=== PATIENT | female | born 1960 | race Caucasian/White ===

== ENCOUNTER 2020-01-11 11:14 | Outpatient (CLI) | payer OTHER, SELFPAY ==
--- NOTE | ~2020-01-11 | US_ITS ---
EXAMINATION: US right upper quadrant EXAM DATE: 01/11/2020 11:58 INDICATION: Right upper quadrant pain. TECHNIQUE: Multiple grayscale and Doppler images of the abdomen right upper quadrant were obtained (b y a technologist who performed the scan) and subsequently reviewed. Comparison is made to prior exami nation from 09/05/2008. FINDINGS: The pancreatic head and body are normal in appearance. The pancreatic tail is not visualized. The l iver has normal echogenicity and contour. There are no focal liver lesions identified. There is no evidence of intrahepatic biliary duct dilation. Portal venous flow was seen in the hepatopedal, nor mal direction and has normal Doppler waveform. No right-sided hydronephrosis. Common bile duct measures 3 mm, which is normal. The gallbladder wall is normal in thickness, with ex pected amount of distention. No sonographic evidence of pericholecystic fluid. Small echogenic focu s, probably poorly calcified gallstone. Technologist performing exam reports patient did not demonst rate sonographic Johnson's sign. Please note that this sign is less reliable in patients who have rec eived pain medication. IMPRESSION: 1. Cholelithiasis. Reviewed, dictated and finalized at location B. AZZO LABORER IMPRESSION: 1. Cholelithiasis.
[2020-01-11 12:49] LABS: Basophils Percent Auto 0.4 % (0.2-1.2); Eosinophils Percent Auto 0.7 % (0-4.4); Hematocrit 44.2 % (37.0-47.0); Hemoglobin 14.4 g/dL (12.0-15.0); Immature Granulocyte Absolute 0.02 K/mm3 (0.00-0.031); Immature Granulocyte Percent A 0.4 % (0-0.5); Lymphocytes Absolute Auto 1.83 K/mm3 (0.9-3.2); Lymphocytes Percent Auto 33.3 % (18.3-44.2); Mean Corpuscular HGB Conc 32.6 g/dl (32-36); Mean Corpuscular Hemoglobin 29.9 pg (26-34); Mean Corpuscular Volume 91.9 fl (80-100); Mean Platelet Volume 11.1 fl (7.4-10.4); Monocytes Absolute Auto 0.5 K/mm3 (0.1-0.6); Monocytes Percent Auto 8.2 % (2.6-8.5); Neutrophils Absolute Auto 3.1 K/mm3 (1.3-6.7); Platelet Count Result 193 k/mm3 (150-375); Red Blood Count 4.81 M/mm3 (4.2-5.4); Red Cell Distribution Width 12.6 % (11.5-14.5); White Blood Count 5.5 K/mm3 (4.5-10.0)
[2020-01-11 12:59] LABS: Alanine Aminotransferase 21 U/L (4-35); Albumin Level 4.4 g/dL (3.5-5.1); Alkaline Phosphatase 74 U/L (38-126); Aspartate Amino Transferase 32 U/L (14-36); Bilirubin,Total 0.6 mg/dL (0.2-1.3); Blood Urea Nitrogen 12 mg/dL (7-17); Calcium 9.7 mg/dL (8.4-10.2); Carbon Dioxide 27 mmol/L (22-30); Chloride 101 mmol/L (98-107); Estimated Glomerular Filt Rate > 60; Glucose 93 mg/dL (65-105); Potassium 4.2 mmol/L (3.4-5.0); Sodium 140 mmol/L (137-145)
== END 2020-01-11 11:15 | disposition home or self-care (01) ==
PROVIDERS: PCP Student in an Organized Health Care Education/Training Program; Visit Provider Student in an Organized Health Care Education/Training Program
DX: R10.11 Right upper quadrant pain (principal); Z13.29 Encounter for screening for other suspected endocrine disorder; Z13.228 Encounter for screening for other metabolic disorders; Z13.0 Encounter for screening for diseases of the blood and blood-forming organs and certain disorders involving the immune mechanism; R10.13 Epigastric pain
CPT/HCPCS: 36415; 76705; 80053; 84443; 85025

== ENCOUNTER 2020-01-16 13:19 | Outpatient (CLI) | payer OTHER, SELFPAY ==
--- NOTE | ~2020-01-16 | MM_ITS ---
EXAMINATION: MM screening [facility] BI w loyd HISTORY: Screening mammogram TECHNIQUE: Craniocaudal and mediolateral oblique 3-D tomosynthesis images were obtained and synthetic 2-D images were generated. CAD analysis was submitted and interpreted. COMPARISON: Prior mammograms dating back to 11/14/2013 BREAST PARENCHYMAL COMPOSITION: The breasts are heterogeneously dense, which may obscure small masses . FINDINGS: RIGHT BREAST: There is no evidence of suspicious mass, calcification, or architectural distortion to suggest malignancy. There has been no significant interval change. LEFT BREAST: There are grouped indeterminate calcifications in the middle third of the lower breast a t the 6:00 location 5 cm from the nipple. IMPRESSION: 1. Indeterminate left breast calcifications. 2. Magnification views are recommended. BI-RADS Category 0: Incomplete: Needs additional imaging evaluation. Reviewed, dictated and finalized at location A. R FABRICATOR
[2020-01-16 14:53] LABS: Add Urine Microscopic? YES; Appearance Urine Clear (Clear); Bacteria Urine Trace /hpf; Bilirubin Urine Negative (Negative); Blood Urine Negative (Negative); Color Urine Yellow (Yellow); Glucose Urine UA Negative (Negative); Ketones Urine Negative (Negative); Leukocyte Esterase Ur Trace LEU/UL (Negative); Mucus Urine Rare /lpf; Nitrate Urine Negative (Negative); Protein Urine Negative (Negative); RBC Urine 0-2 /hpf (0-2); Specific Grav Ur 1.015 (1.001-1.035); Squamous Epithelial Cell Urine Many /hpf (Few); Urobilinogen Urine Negative mg/dL (<2.0); WBC Urine 0-3 /hpf
[2020-01-16 15:00] LABS: Cholesterol 232 mg/dL (0-200); HDL Direct 83 mg/dL; Lipase 78 U/L (23-300); Triglycerides 67 mg/dL (<150)
[2020-01-16 15:11] LABS: LDL Cholesterol Direct 108 mg/dL
[2020-01-16 16:07] LABS: Vitamin D 25 Hydroxy 18.3 ng/mL
== END 2020-01-16 13:20 | disposition home or self-care (01) ==
PROVIDERS: PCP Student in an Organized Health Care Education/Training Program; Visit Provider Student in an Organized Health Care Education/Training Program
DX: Z12.31 Encounter for screening mammogram for malignant neoplasm of breast (principal); Z13.29 Encounter for screening for other suspected endocrine disorder; Z13.0 Encounter for screening for diseases of the blood and blood-forming organs and certain disorders involving the immune mechanism; Z13.228 Encounter for screening for other metabolic disorders; Z13.220 Encounter for screening for lipoid disorders; R92.8 Other abnormal and inconclusive findings on diagnostic imaging of breast
CPT/HCPCS: 36415; 77063; 77067; 80061; 81001; 82306; 83690

== ENCOUNTER 2020-02-11 12:59 | Outpatient (CLI) | payer OTHER, SELFPAY ==
--- NOTE | ~2020-02-11 | MM_ITS ---
EXAMINATION: MM diagnostic mammo unilat LT HISTORY: Left breast calcifications TECHNIQUE: Additional 3-D tomosynthesis images of the left breast were performed and synthetic 2-D im ages were generated. CAD analysis was submitted and interpreted. COMPARISON: Comparison to multiple prior studies sequentially, with oldest reviewed study dated 04/2015. FINDINGS: Breast composed of scattered areas of fibroglandular density. There is a cluster of indeter minate calcifications lower central aspect of the left breast, middle third. No suspicious masses or architectural distortion. IMPRESSION: 1. Clustered indeterminate left breast calcifications lower central aspect of the left breast. 2. Recommend stereotactic left breast biopsy. BI-RADS category 4, suspicious findings. Reviewed, dictated and finalized at location A. IMPRESSION: 1. Clustered indeterminate left breast calcifications lower central aspect of t he left breast. 2. Recommend stereotactic left breast biopsy. BI-RADS category 4, suspicious findings.
== END 2020-02-11 13:00 | disposition home or self-care (01) ==
LOC: ANHIMG 13:03
PROVIDERS: PCP Student in an Organized Health Care Education/Training Program; Visit Provider Student in an Organized Health Care Education/Training Program
DX: R92.8 Other abnormal and inconclusive findings on diagnostic imaging of breast (principal)
CPT/HCPCS: 77065

== ENCOUNTER 2020-02-15 00:54 | Day surgery (SDC) | payer OTHER, SELFPAY ==
[2020-02-11 10:09] VITALS: BMI 35.4
[2020-02-15 09:15] VITALS: BP 138/66; PULSE 62; RESP 18; TEMP 36.1; O2SAT 97
[2020-02-15] MEDS: LACTATED RINGERS 1,000 ML 150 ML IV CONT (09:30)
--- NOTE | 2020-02-15 09:43 | WPDANESEPPF ---
Anes - Initial Pre Proc Eval Procedure: Operation Date: 02/15/20 10:00 Proposed Procedures p Esophagogastroduodenoscopy - Franky Jordan MD Date/Time: 02/15/20 09:43 Surgeon: Franky Jordan MD Pre Op Diagnosis: Epigastric Pain Patient Data Age: 59 Gender: F Height: 5 ft 1 in Weight: 88.6 kg Last Vital Signs Temp 97.0 F L 02/15/20 09:15 Pulse 62 02/15/20 09:15 Resp 18 02/15/20 09:15 BP 138/66 02/15/20 09:15 Pulse Ox 97 02/15/20 09:15 Allergies Allergy/AdvReac Type Severity Reaction Status Date / Time Sulfa (Sulfonamide Allergy Unknown Verified 02/15/20 09:01 Antibiotics) Home Medications Medication Instructions Recorded Confirmed Type omeprazole 40 mg PO DAILY 02/11/20 02/15/20 History sertraline 100 mg PO DAILY 02/11/20 02/15/20 History Patient hx anesthesia problems: none Family hx anesthesia problems: none PMFSH Past Medical History Medical History (Updated 02/15/20 @ 09:39 by Jorge Suarez MD) Anxiety GERD (gastroesophageal reflux disease) Hyperlipidemia Family History Family History (Updated 10/16/15 @ 13:12 by DOCTOR UNKNOWN) Mother Family history of chronic obstructive pulmonary disease Father Family history of coronary artery disease Patient's father is Grandparent Diabetes mellitus Social History Social History Smoking status: Never smoker Second hand tobacco smoke exposure: No Alcohol intake: current Anes - Eval Final PreProcedure Day of Procedure 02/15/20 09:43 Patient weight: obese Heart: regular rate and rhythm Lungs: clear to auscultation Airway: Mallampati scale class II Neurological: alert and oriented Last oral intake: >/= 8 hours ASA classification: II Emergent: no Anesthetic plan: proceed Anesthesia type and monitoring: general GIVS and standard monitoring Informed Consent: The patient's anesthetic plan and its attendant risks and benefits were discussed with the patient/family/POA. Questions were solicited and answers provided to the satisfaction of the patient/family/POA.
--- NOTE | 2020-02-15 10:06 | PM.HPGS ---
History of Present Illness History of Present Illness Consent: Risks, benefits, and alternatives have been discussed and questions answered. Patient agrees to proceed with procedure. Chief complaint: Epigastric Pain Narrative: Mica Martinez is a 59 year old female referred because of persistent epigastric discomfort, indigestion and a full feeling. She gets full quickly when eating. She has not been vomiting and has not lost weight. She was found to have a gallstone on ultrasound PMFSH Past Medical History Medical History Anxiety GERD (gastroesophageal reflux disease) Hyperlipidemia Family History Family History Mother Family history of chronic obstructive pulmonary disease Father Family history of coronary artery disease Patient's father is Grandparent Diabetes mellitus Social History Social History Smoking status: Never smoker Second hand tobacco smoke exposure: No Alcohol intake: current Meds Home Medications and Allergies Home Medications Medication Instructions Recorded Confirmed Type omeprazole 40 mg PO DAILY 02/11/20 02/15/20 History sertraline 100 mg PO DAILY 02/11/20 02/15/20 History Allergies Allergy/AdvReac Type Severity Reaction Status Date / Time Sulfa (Sulfonamide Allergy Unknown Verified 02/15/20 09:01 Antibiotics) Vital Signs Vital Signs - 24 hr 02/15/20 09:15 Temperature 36.1 C L Pulse Rate 62 Respiratory Rate 18 Blood Pressure 138/66 Pulse Oximetry 97 Exam Const: General: alert Orientation/consciousness: patient oriented x3 Resp: Auscultation: clear to auscultation bilaterally Cardio: Rhythm: regular rhythm GI: GI Palp: Yes Soft to palpation and No Tenderness to palpation present (GI) Neuro: General: patient oriented x3 Assessment and Plan Assessment and plan (1) Epigastric pain: Code(s): R10.13 - Epigastric pain Status: Acute Assessment and Plan: EGD with possible biopsy or dilatation or cautery.
[2020-02-15 10:19] VITALS: BP 137/78; PULSE 64; RESP 16; O2SAT 95
[2020-02-15 10:29] VITALS: BP 128/74; PULSE 60; RESP 16; O2SAT 96
[2020-02-15 10:39] VITALS: BP 148/76; PULSE 62; RESP 16; O2SAT 100
--- NOTE | 2020-02-15 10:55 | SUR.PHASEII ---
COVID 19 SHEET SENT
== END 2020-02-15 10:54 | disposition home or self-care (01) ==
PROVIDERS: PCP Student in an Organized Health Care Education/Training Program; Visit Provider Internal Medicine Gastroenterology
PROC: 0DJ08ZZ Inspection of Upper Intestinal Tract, Via Natural or Artificial Opening Endoscopic (ICD-10-PCS; CPT 43235; principal; 2020-02-15 10:00)
DX: K22.4 Dyskinesia of esophagus (principal); K21.9 Gastro-esophageal reflux disease without esophagitis; K44.9 Diaphragmatic hernia without obstruction or gangrene; R68.81 Early satiety; E78.5 Hyperlipidemia, unspecified; F41.9 Anxiety disorder, unspecified; E66.9 Obesity, unspecified; Z68.36 Body mass index [BMI] 36.0-36.9, adult
CPT/HCPCS: 43239; 88305; 88313; J2704; J7120

== ENCOUNTER 2020-02-19 09:48 | Outpatient (CLI) | payer OTHER, SELFPAY ==
--- NOTE | ~2020-02-19 | MM_ITS ---
MM stereotactic specimen LT DATE: 02/19/2020 12:16 INDICATION: Stereotactic biopsy attempt for multiple microcalcifications in the lower central left br east TECHNIQUE: 3 separate stereotactic biopsy specimens were subjected to noncompression digital mammogra phy. COMPARISON: None FINDINGS: No microcalcifications of interest are present. IMPRESSION: Unsuccessful stereotactic biopsy Reviewed, dictated and finalized at Location A. Reviewed, dictated and finalized at location A.
--- NOTE | ~2020-02-19 | MM_ITS ---
"EXAMINATION: MM stereotactic bx LT, Specimen Radiograph, Tissue Marker Clip Placement, Unilateral Edis mogram DATE: 02/19/2020 12:14 INDICATION: Abnormal mammogram: Grouped indeterminate microcalcifications, lower central left breast. TECHNIQUE AND FINDINGS: The risks and potential benefits of the procedure were discussed with the patient and written informe d consent was obtained. Timeout procedure was performed. The patient was informed that the microcathe ter calcifications are relatively superficial and might be difficult to obtain, and the alternative w as mammographically guided wire localization and surgical excision. The patient indicated understandi ng and wanted to proceed with the stereotactic biopsy, understanding it might not be successful. The patient was placed in the prone position on the dedicated stereotactic table with the left breast in caudal cranial compression, and the area of interest was localized and targeted utilizing digital imaging with stereotaxis. After sterile preparation of the skin, 1% lidocaine was utilized for local anesthesia at the skin pun cture site and 1% lidocaine with epinephrine was utilized for deeper local anesthesia/is about the bi opsy site. A 9G e|tab vacuum assisted biopsy needle was advanced to the level of the calcification o f interest from a caudal approach utilizing stereotactic guidance and a total of 32 tissue core biops ies were obtained at 3 different depths. 3 specimen radiographs from each of the 3 levels of biopsy unfortunately revealed no evidence of the microcalcifications of interest.. The needle was removed and hemostasis was achieved. A sterile ban dage was applied. The patient tolerated the procedure well and there is no evidence of significant i mmediate complication. The patient was given verbal as well as written postprocedural instructions p rior to discharge from the department. Tissue cores were submitted to surgical pathology for histolo gic analysis. IMPRESSION: 1. Unsuccessful stereotactic biopsy, unfortunately yielding no microcalcifications of interest despit e sampling at 3 different depths. Please refer to pathology report for histologic analysis. Reviewed, dictated and finalized at Location A. Reviewed, dictated and finalized at location A. IMPRESSION: 1. Unsuccessful stereotactic biopsy, unfortunately yielding no microcalcificati ons of interest despite sampling at 3 different depths. Please refer to pathol ogy report for histologic analysis."
== END 2020-02-19 09:49 | disposition home or self-care (01) ==
PROVIDERS: PCP Student in an Organized Health Care Education/Training Program; Visit Provider Student in an Organized Health Care Education/Training Program
DX: R92.8 Other abnormal and inconclusive findings on diagnostic imaging of breast (principal)
CPT/HCPCS: 19081; 88305